=== PATIENT | male | born 1935 | race Caucasian/White ===

== ENCOUNTER 2019-05-23 10:25 | Emergency (ER) | payer OTHER ==
[2019-05-23 11:06] LABS: Influenza A Molecular Negative (Negative); Influenza B Molecular Negative (Negative)
--- NOTE | 2019-05-23 11:24 | ED ---
Influenza-Like Illness - HPI Summary HPI Summary: 83 year old M presents to [facility] via private car accompanied by his with concerns for influenza. The patient states he has rhinorrhea, a non-productive cough, and mild shortness of breath. Sx have been present since 05/21/19. He denies having a sore throat, fever, and chest pain. He states he had sick contact with his son, who tested positive for influenza. Home Medications Medication Instructions Recorded Confirmed Type Multivitamin [One Daily] 1 tab PO DAILY 02/06/16 12/20/17 History Albuterol HFA INHALER* [Ventolin 2 puff PO Q4H PRN 12/20/17 12/20/17 History HFA Inhaler*] Carvedilol TAB* [Coreg TAB*] 0.5 tab PO DAILY 12/20/17 12/20/17 History Cholecalciferol TAB* [Vitamin D 2 tab PO DAILY 12/20/17 12/20/17 History TAB*] DULoxetine DR CAP* [Cymbalta CAP*] 60 mg PO DAILY 12/20/17 12/20/17 History Docusate CAP* [Colace Cap*] 100 mg PO DAILY 12/20/17 12/20/17 History Ferrous Sulfate TAB* 2 tab PO DAILY 12/20/17 12/20/17 History Folic Acid TAB* [Folvite TAB*] 1 mg PO DAILY 12/20/17 12/20/17 History Gabapentin CAP(*) [Neurontin 100 100 mg PO BEDTIME 12/20/17 12/20/17 History mg CAP(*)] Hydrochlorothiazide TAB* 50 mg PO DAILY 12/20/17 12/20/17 History [Hydrodiuril TAB*] Morphine TAB (NF) [Morphine 30 MG 1 tab PO BID 12/20/17 12/20/17 History TAB (NF)] Oxybutynin XL TAB* [Ditropan XL 5 mg PO DAILY 12/20/17 12/20/17 History TAB*] Potassium Chlor TAB* [Potassium 2 tab PO DAILY 12/20/17 12/20/17 History Chlor TAB 20 MEQ*] oxyCODONE/Acetamin 5/325 MG* 1 tab PO Q4HR PRN 12/20/17 12/20/17 History [Percocet 5/325 TAB*] - History of Current Complaint Chief Complaint: EDFluSymptoms Time Seen by Provider: 05/23/19 10:35 Hx Obtained From: Patient Onset/Duration: Lasting Days Severity: Mild Associated Signs & Symptoms: Cough - Allergy/Home Medications Allergies/Adverse Reactions: Allergies Allergy/AdvReac Type Severity Reaction Status Date / Time terazosin Allergy Swelling Verified 05/23/19 10:34 Home Medications: Home Medications Multivitamin [One Daily] 1 tab PO DAILY 02/06/16 [History Confirmed 12/20/17] Albuterol HFA INHALER* [Ventolin HFA Inhaler*] 2 puff PO Q4H PRN 12/20/17 [ History Confirmed 12/20/17] Carvedilol TAB* [Coreg TAB*] 0.5 tab PO DAILY 12/20/17 [History Confirmed ] Cholecalciferol TAB* [Vitamin D TAB*] 2 tab PO DAILY 12/20/17 [History Confirmed 12/20/17] DULoxetine DR CAP* [Cymbalta CAP*] 60 mg PO DAILY 12/20/17 [History Confirmed ] Docusate CAP* [Colace Cap*] 100 mg PO DAILY 12/20/17 [History Confirmed 12/20/17 ] Ferrous Sulfate TAB* 2 tab PO DAILY 12/20/17 [History Confirmed 12/20/17] Folic Acid TAB* [Folvite TAB*] 1 mg PO DAILY 12/20/17 [History Confirmed ] Gabapentin CAP(*) [Neurontin 100 mg CAP(*)] 100 mg PO BEDTIME 12/20/17 [History Confirmed 12/20/17] Hydrochlorothiazide TAB* [Hydrodiuril TAB*] 50 mg PO DAILY 12/20/17 [History Confirmed 12/20/17] Morphine TAB (NF) [Morphine 30 MG TAB (NF)] 1 tab PO BID 12/20/17 [History Confirmed 12/20/17] Oxybutynin XL TAB* [Ditropan XL TAB*] 5 mg PO DAILY 12/20/17 [History Confirmed 12/20/17] Potassium Chlor TAB* [Potassium Chlor TAB 20 MEQ*] 2 tab PO DAILY 12/20/17 [ History Confirmed 12/20/17] oxyCODONE/Acetamin 5/325 MG* [Percocet 5/325 TAB*] 1 tab PO Q4HR PRN 12/20/17 [ History Confirmed 12/20/17] PMH/Surg Hx/FS Hx/Imm Hx Endocrine/Hematology History: Denies: Hx Diabetes Cardiovascular History: Reports: Hx Hypertension - ON MEDICATION FOR Denies: Hx Pacemaker/ICD Respiratory History: Denies: Hx Asthma, Hx Chronic Obstructive Pulmonary Disease (COPD) History: Denies: Hx Renal Disease Musculoskeletal History: Reports: Hx Arthritis - "ALL OVER" Sensory History: Reports: Hx Contacts or Glasses - GLASSES, Hx Hearing Aid - BILATERALLY Opthamlomology History: Reports: Hx Contacts or Glasses - GLASSES Psychiatric History: Denies: Hx Panic Disorder - Cancer History Cancer Type, Location and Year: PROSTATE - Surgical History Surgery Procedure, Year, and Place: RIGHT SHOULDER ROTATOR CUFF SURGERY 2009. PROSTATE SURGERY 2013-NECK SURGERY 2010. THUMB SURGERY 2010 Hx Anesthesia Reactions: No Infectious Disease History: No Infectious Disease History: Denies: Traveled Outside the [place] in Last 30 Days - Family History Known Family History: Positive: Other - CVA - Social History Alcohol Use: None Substance Use Type: Reports: None Smoking Status (MU): Current Every Day Smoker Type: Pipe Amount Used/How Often: PIPE- 1-2 TIMES PER DAY Review of Systems Negative: Fever Positive: Nasal Discharge. Negative: Sore Throat Negative: Chest Pain Positive: Shortness Of Breath - Mild SOB. , Cough All Other Systems Reviewed And Are Negative: Yes Physical Exam - Summary Physical Exam Summary: VITAL SIGNS: Reviewed. GENERAL: Patient is a well-developed and nourished male who is lying comfortable in the stretcher. Patient is not in any acute respiratory distress. HEAD AND FACE: No signs of trauma. No ecchymosis, hematomas or skull depressions. No sinus tenderness. EYES: PERRLA, EOMI x 2, No injected conjunctiva, no nystagmus. EARS: Hearing grossly intact. Ear canals and tympanic membranes are within normal limits. MOUTH: Oropharynx within normal limits. NECK: Supple, trachea is midline, no adenopathy, no JVD, no carotid bruit, no c- spine tenderness, neck with full ROM. CHEST: Symmetric, no tenderness at palpation. LUNGS: Clear to auscultation bilaterally. No wheezing or crackles. CVS: Regular rate and rhythm, S1 and S2 present, no murmurs or gallops appreciated. ABDOMEN: Soft, non-tender. No signs of distention. No rebound, no guarding, and no masses palpated. Bowel sounds are normal. EXTREMITIES: FROM in all major joints, no edema, no cyanosis or clubbing. NEURO: Alert and oriented x 3. No acute neurological deficits. Speech is normal and follows commands. SKIN: Dry and warm. Triage Information Reviewed: Yes Vital Signs On Initial Exam: Initial Vitals Temp Pulse Resp BP Pulse Ox 97.7 F 71 16 135/81 97 05/23/19 10:32 05/23/19 10:32 05/23/19 10:32 05/23/19 10:32 05/23/19 10:32 Vital Signs Reviewed: Yes Procedures - Sedation Patient Received Moderate/Deep Sedation with Procedure: No Diagnostics - Vital Signs Vital Signs Temp Pulse Resp BP Pulse Ox 05/23/19 10:32 97.7 F 71 16 135/81 97 - Laboratory Lab Results: Lab Results 05/23/19 Range/Units 10:40 Influenza A (Rapid) Negative (Negative) Influenza B (Rapid) Negative (Negative) Lab Statement: Any lab studies that have been ordered have been reviewed, and results considered in the medical decision making process. Re-Evaluation - Re-Evaluation First Eval Comment: Dr. Estrada informed the patient of influenza testing results. Flu Symptom Course/Dx - Course Assessment/Plan: 83 year old M presents to [facility] via private car accompanied by his with concerns for influenza. The patient states he has rhinorrhea, a non-productive cough, and mild shortness of breath. Sx have been present since . He denies having a sore throat, fever, and chest pain. He states he had sick contact with his son, who tested positive for influenza. Influenza A and B were negative. Patient is currently asymptomatic. He is only tested because he was in contact with someone who is positive for influenza. Plan of care was discussed with the patient and understands and agrees. All questions were answered at patient satisfaction. There were no further complaints or concerns. Lung exam before discharge: CTA B/L. Good air exchange. No wheezing or crackles heard. CVS: S1 and S2 present. No murmurs appreciated. Patient is alert and oriented x 3. Patient is hemodynamically stable. Patient will be discharged home with follow up PCP in the next 2-3 days - Diagnoses Provider Diagnoses: URI (upper respiratory infection) Discharge ED - Sign-Out/Discharge Documenting (check all that apply): Patient Departure - Discharge. - Discharge Plan Condition: Stable Disposition: HOME Patient Education Materials: Upper Respiratory Infection (ED) Referrals: Rosa Elena Kendall [Primary Care Provider] - 3 Days Additional Instructions: Please return to the ER with new or worsening symptoms. Please make a follow up appointment with your primary care physician within 3 days. - Billing Disposition and Condition Condition: STABLE Disposition: Home - Attestation Statements Document Initiated by Leonardo: Yes Documenting Scribe: Renata Sarkar Provider For Whom Leonardo is Documenting (Include Credential): Jude Estrada MD Scribe Attestation: Renata Villanueva, scribed for Jude Estrada MD on 05/24/19 at 0828. Scribe Documentation Reviewed: Yes Provider Attestation: The documentation as recorded by the Renata villanueva accurately reflects the service I personally performed and the decisions made by Jude sandoval MD Status of Scribe Document: Viewed
[2019-05-23 11:37] VITALS: BP 124/65
== END 2019-05-23 11:37 | disposition home or self-care (01) ==
LOC: ED 10:25
DX: J06.9 Acute upper respiratory infection, unspecified (principal); R06.02 Shortness of breath; F17.210 Nicotine dependence, cigarettes, uncomplicated; Z79.899 Other long term (current) drug therapy; Z85.46 Personal history of malignant neoplasm of prostate; Z82.3 Family history of stroke
CPT/HCPCS: 99281

== ENCOUNTER 2019-06-14 22:49 | Observation (INO) | payer OTHER ==
--- NOTE | 2019-06-14 23:44 | ED ---
HPI Chest Pain - HPI Summary HPI Summary: 83 year old male presents to the ED with a chief complaint of right-sided chest pain starting at 1900 today. Patient reports that his stepson asked him to come to the ED, and he obliged. Patient's pain started as a 4/10 in severity on his left side, but the pain soon migrated to his right side. Patient thought it was reflux and took a John, which might have may have alleviated the pain slightly. Pain is currently still a 3. Patient reports slight diaphoresis, but denies SOB , nausea, or fever. His 2 days ago. No history of heart issues. History of neck surgery, back surgery, and hip surgery. Family history of CVA. Patient does not drink alcohol or do recreational drugs, but he smokes from a pipe occasionally. - History of Current Complaint Chief Complaint: EDChestPainROMI Time Seen by Provider: 06/14/19 23:34 Hx Obtained From: Patient Onset/Duration: Started Hours Ago Time of Onset: 19:00 Timing: Constant, Lasting Seconds, Lasting Hours Current Severity: Mild Pain Intensity: 3 Pain Scale Used: 0-10 Numeric Chest Pain Location: Right Anterior - Started on left side but moved to right side Chest Pain Radiates: No Aggravating Factor(s): Nothing Alleviating Factor(s): Medication - John's Associated Signs and Symptoms: Positive: Chest Pain, Diaphoresis. Negative: Shortness of Breath, Fever, Nausea - Allergy/Home Medications Allergies/Adverse Reactions: Allergies Allergy/AdvReac Type Severity Reaction Status Date / Time terazosin Allergy Swelling Verified 05/23/19 10:34 Home Medications: Home Medications Multivitamin [One Daily] 1 tab PO DAILY 02/06/16 [History Confirmed 06/15/19] Albuterol HFA INHALER* [Ventolin HFA Inhaler*] 2 puff PO Q4H PRN 12/20/17 [ History Confirmed 06/15/19] Carvedilol TAB* [Coreg TAB*] 0.5 tab PO DAILY 12/20/17 [History Confirmed ] Cholecalciferol TAB* [Vitamin D TAB*] 2 tab PO DAILY 12/20/17 [History Confirmed 06/15/19] Hydrochlorothiazide TAB* [Hydrodiuril TAB*] 50 mg PO DAILY 12/20/17 [History Confirmed 06/15/19] Potassium Chlor TAB* [Potassium Chlor TAB 20 MEQ*] 1 tab PO BID 12/20/17 [ History Confirmed 06/15/19] oxyCODONE/Acetamin 5/325 MG* [Percocet 5/325 TAB*] 1 tab PO Q4HR PRN 12/20/17 [ History Confirmed 06/15/19] PMH/Surg Hx/FS Hx/Imm Hx Endocrine/Hematology History: Denies: Hx Diabetes Cardiovascular History: Reports: Hx Hypertension - ON MEDICATION FOR Denies: Hx Pacemaker/ICD Respiratory History: Denies: Hx Asthma, Hx Chronic Obstructive Pulmonary Disease (COPD) History: Denies: Hx Renal Disease Musculoskeletal History: Reports: Hx Arthritis - "ALL OVER" Sensory History: Reports: Hx Contacts or Glasses - GLASSES, Hx Hearing Aid - BILATERALLY Opthamlomology History: Reports: Hx Contacts or Glasses - GLASSES Psychiatric History: Denies: Hx Panic Disorder - Cancer History Cancer Type, Location and Year: PROSTATE - Surgical History Surgery Procedure, Year, and Place: RIGHT SHOULDER ROTATOR CUFF SURGERY 2009. PROSTATE SURGERY 2013-NECK SURGERY 2010. THUMB SURGERY 2011 Hx Anesthesia Reactions: No Infectious Disease History: No Infectious Disease History: Denies: Traveled Outside the [place] in Last 30 Days - Family History Known Family History: Positive: Other - CVA - Social History Alcohol Use: None Substance Use Type: Reports: None Smoking Status (MU): Current Every Day Smoker Type: Pipe Amount Used/How Often: PIPE- 1-2 TIMES PER DAY Review of Systems - ROS Summary Review of Systems Summary: Home Medications Medication Instructions Recorded Confirmed Type Multivitamin [One Daily] 1 tab PO DAILY 02/06/16 12/20/17 History Albuterol HFA INHALER* [Ventolin 2 puff PO Q4H PRN 12/20/17 12/20/17 History HFA Inhaler*] Carvedilol TAB* [Coreg TAB*] 0.5 tab PO DAILY 12/20/17 12/20/17 History Cholecalciferol TAB* [Vitamin D 2 tab PO DAILY 12/20/17 12/20/17 History TAB*] DULoxetine DR CAP* [Cymbalta CAP*] 60 mg PO DAILY 12/20/17 12/20/17 History Docusate CAP* [Colace Cap*] 100 mg PO DAILY 12/20/17 12/20/17 History Ferrous Sulfate TAB* 2 tab PO DAILY 12/20/17 12/20/17 History Folic Acid TAB* [Folvite TAB*] 1 mg PO DAILY 12/20/17 12/20/17 History Gabapentin CAP(*) [Neurontin 100 100 mg PO BEDTIME 12/20/17 12/20/17 History mg CAP(*)] Hydrochlorothiazide TAB* 50 mg PO DAILY 12/20/17 12/20/17 History [Hydrodiuril TAB*] Morphine TAB (NF) [Morphine 30 MG 1 tab PO BID 12/20/17 12/20/17 History TAB (NF)] Oxybutynin XL TAB* [Ditropan XL 5 mg PO DAILY 12/20/17 12/20/17 History TAB*] Potassium Chlor TAB* [Potassium 2 tab PO DAILY 12/20/17 12/20/17 History Chlor TAB 20 MEQ*] oxyCODONE/Acetamin 5/325 MG* 1 tab PO Q4HR PRN 12/20/17 12/20/17 History [Percocet 5/325 TAB*] Positive: Skin Diaphoresis. Negative: Fever Positive: Chest Pain Negative: Shortness Of Breath Negative: Nausea All Other Systems Reviewed And Are Negative: Yes Physical Exam - Summary Physical Exam Summary: General: Well-developed, Well-nourished, elderly male. No acute distress. HEENT: Normocephalic, Atraumatic. Eyes: Conjuctiva normal, PERRL. Ears: TMs within normal limits. Nares: (-) discharge, (-) erythema. Oropharynx: Clear, mucous membranes moist, (-) exudates. Neck: Soft, FROM, (-) lymphadenopathy, (-) thyromegaly, (-) JVD. Cardiovascular: Normal sinus rhythm, (-) murmur. Lungs: Clear to auscultation bilaterally (-) wheezes, (-) rales, (-) rhonchi. Abdomen: Soft, non-tender, non-distended, (-) organomegaly, normal bowel sounds. Back: (-) CVA tenderness Extremities: No edema. Skin: Warm, dry, (-) rash. Neuro: Alert and oriented x3, no focal deficits. Psychiatric: Mood normal, affect normal. Triage Information Reviewed: Yes Vital Signs On Initial Exam: Initial Vitals Temp Pulse Resp BP Pulse Ox 97.6 F 65 20 147/78 100 06/14/19 22:54 06/14/19 22:54 06/14/19 22:54 06/14/19 22:54 06/14/19 22:54 Vital Signs Reviewed: Yes Procedures - Sedation Patient Received Moderate/Deep Sedation with Procedure: No Diagnostics - Vital Signs Vital Signs Temp Pulse Resp BP Pulse Ox 06/14/19 22:54 97.6 F 65 20 147/78 100 - Laboratory Result Diagrams: 06/14/19 23:23 06/14/19 23:23 Lab Statement: Any lab studies that have been ordered have been reviewed, and results considered in the medical decision making process. - Radiology CXR Radiology Interpretation Completed By: ED Physician Summary of Radiographic Findings: No infiltrate. No pleural effusion. Dr. Mcclellan has reviewed and interpreted by Dr. Mcclellan. Pending official read. - EKG 2254 Cardiac Rate: NL - 65 bpm EKG Rhythm: Sinus Rhythm ST Segment: Normal Ectopy: None Summary of EKG Findings: EKG at 2254 reveals normal sinus rhythm with rate of 65 BPM, no acute changes, no ischemic changes. No STEMI. This EKG was reviewed and interpreted by Dr. Mcclellan. Chest Pain Course/Dx - Course Course Of Treatment: 83-year-old male presents to the emergency room for chest pain. He states he lives at home with his stepson. He began having chest pain tonight about 7:00. Started on the left and then moved to the right. Describes it as a 4 out of 10 at its worst. Vague historian. He thought it was indigestion so he took a Tums. Not sure if that really helped or not. He denies any history of coronary artery disease. Denies any nausea or suppressant. Sometimes sweaty. Patient does note that his 2 days ago. On physical exam there is no significant abnormalities found. Workup demonstrates a troponin of 0.03. Normal EKG. Normal x-ray. Repeat troponin was 0.03 as well. Discussed with patient at length. Patient referred to hospitalist for admission. During ED course, patient was given acetaminophen, amlodipine, enoxaparin, fluids, and ondansetron. - Diagnoses Provider Diagnoses: Chest pain - Provider Notifications Discussed Care Of Patient With: Stanton Irving - Hospitalist Time Discussed With Above Provider: 03:50 Instructed by Provider To: Admit As Observation - Dr. Irving agrees to admit patient as observation Admit/Transition Orders Completed By ED Provider: Yes Discharge ED - Sign-Out/Discharge Documenting (check all that apply): Patient Departure - admit - Discharge Plan Condition: Stable Disposition: ADMITTED TO [facility] Referrals: Rosa Elena Kendall [Primary Care Provider] - - Billing Disposition and Condition Condition: STABLE Disposition: Admitted to [facility] - Attestation Statements Document Initiated by Scribe: Yes Documenting Scribe: Dez Eaton Provider For Whom Natalioibe is Documenting (Include Credential): Dr. Kristen Mcclellan Scribe Attestation: Dez Villanueva, scribed for Dr. Kristen Mcclellan on 06/15/19 at 0615. Scribe Documentation Reviewed: Yes Provider Attestation: The documentation as recorded by the scribeDez accurately reflects the service I personally performed and the decisions made by , Dr. Kristen Mcclellan Status of Scribe Document: Viewed
[2019-06-15 00:06] LABS: ABS Monocytes 0.4 10^3/ul (0-0.8); Eosinophil % 1.3 %; Hematocrit 30 % (42-52); Hemoglobin 10.7 g/dL (14.0-18.0); Lymphocyte % 29.8 %; Mean Corpuscular HGB Conc 35 g/dL (31-36); Mean Corpuscular Hemoglobin 31 pg (27-31); Mean Corpuscular Volume 88 fL (80-94); Mean Platelet Volume 7.8 fL (7.4-10.4); Platelet Count 234 10^3/uL (150-450); Red Blood Count 3.44 10^6 /uL (4.18-5.48); Red Cell Distribution Width 15 % (10-15); White Blood Count 3.5 10^3/uL (3.5-10.8)
[2019-06-15 00:20] LABS: ALT 14 U/L (7-52); AST 25 U/L (13-39); Albumin 4.3 g/dL (3.2-5.2); Albumin/Globulin Ratio 1.3 (1-3); Alkaline Phosphatase 80 U/L (34-104); Anion Gap 8 mmol/L (2-11); BUN/Creatinine Ratio 21.4 (8-20); Blood Urea Nitrogen 41 mg/dL (6-24); CO2 Carbon Dioxide 27 mmol/L (22-32); Calcium 10.1 mg/dL (8.6-10.3); Chloride 102 mmol/L (101-111); EGFR African American 40.7 (>60); EGFR Non-African American 33.6 (>60); Globulin 3.2 g/dL (2-4); Glucose 103 mg/dL (70-100); Potassium 4.2 mmol/L (3.5-5.0); Sodium 137 mmol/L (135-145); Total Protein 7.5 g/dL (6.4-8.9)
[2019-06-15 00:38] LABS: Troponin I 0.03 ng/mL (<0.03)
[2019-06-15 03:30] LABS: Troponin I 0.03 ng/mL (<0.03)
[2019-06-15] MEDS ORDERED: Acetaminophen TAB* 325 MG PO PRN (04:21)
[2019-06-15] MEDS ORDERED: Ondansetron INJ* 2 MG/ML VIAL IV PRN (04:21)
[2019-06-15] MEDS ORDERED: amLODIPine TAB* 5 MG PO ONE (04:28)
[2019-06-15] MEDS ORDERED: NS 0.9% 1000 ML** 1,000 ML IV SCH (04:30)
[2019-06-15] MEDS ORDERED: Enoxaparin(*) 40 MG/0.4 ML SYR SUBCUT SCH (05:00)
[2019-06-15 05:26] LABS: Cholesterol 198 mg/dL; HDL Cholesterol 59.8 mg/dL; LDL Cholesterol 115 mg/dL; Triglycerides 116 mg/dL
[2019-06-15 06:05] LABS: Troponin I 0.03 ng/mL (<0.03)
--- NOTE | 2019-06-15 07:35 | HP ---
AMENDED REPORT NOW INCLUDES DESIGNATED COSIGNER - ESIGNED BEFORE ADJUSTMENTS ADMISSION HISTORY AND PHYSICAL: DATE OF ADMISSION: 06/15/19 PRIMARY CARE PHYSICIAN: Rosa Elena Kendall NP PROVIDER: Gardenia Lyn NP ATTENDING PHYSICIAN: Dr. Irving.* (DICTATED BY GARDENIA LYN NP) CHIEF COMPLAINT: Chest pain. HISTORY OF PRESENT ILLNESS: This is an 83-year-old male with a past medical history significant for hypertension and prostate cancer, who came to the emergency room on 06/14/19 after experiencing chest pain starting around 1900 yesterday 06/14/19. His 2 days ago. They have been for 32 years and then starting around 1900, he developed a 3/10 left-sided chest pain that migrated to the right. It did not radiate to his jaw, back or arm. He thought it was indigestion, so he took Tums, which helped alleviate the pain to a certain degree. He also denied any associated nausea or sweating or palpations. He stated that he has been under considerable amount of stress considering the sudden nature of his passing and the state of the world today. In the emergency room, chest x-ray and EKG were performed, labs were drawn, which revealed a troponin of 0.03 x2. Hospitalists were asked to evaluate the patient for admission. At the time of evaluation, he was denying any chest pain. PAST MEDICAL HISTORY: 1. Hypertension. 2. Arthritis. 3. Prostate cancer. 4. Psoriasis. 5. Vitamin B12 deficiency. 6. Bilateral hearing aids. PAST SURGICAL HISTORY: 1. Left total hip replacement. 2. Right rotator cuff repair 2010. 3. Neck surgery in 2010. 4. Thumb surgery in 2010. HOME MEDICATIONS: The patient was unfamiliar with the names of the medications that he takes; however, this history is taken off of his emergency room visit on 05/23/19 where the meds were confirmed. 1. Multivitamin 1 tab p.o. daily. 2. Albuterol inhaler 2 puffs inhalation q.4 hours p.r.n. 3. Carvedilol half tab p.o. daily. 4. Cholecalciferol 2 tabs p.o. daily. 5. Duloxetine 60 mg p.o. daily. 6. Docusate 100 mg p.o. daily. 7. Ferrous sulfate 2 tabs p.o. daily 8. Folic acid 1 mg p.o. daily. 9. Gabapentin 100 mg p.o. at bedtime. 10. Hydrochlorothiazide 50 mg p.o. daily. 11. Morphine 30 mg p.o. b.i.d. 12. Oxybutynin 5 mg p.o. daily. 13. Potassium chloride 40 mEq p.o. daily. 14. Percocet 5/325 one tab p.o. q.4 hours p.r.n. ALLERGIES: TERAZOSIN. FAMILY HISTORY: Significant for CVA. SOCIAL HISTORY: He smokes pipe 1 to 2 times daily. Denies any alcohol or recreational substance use. He is retired and now . REVIEW OF SYSTEMS: A 12-point system review was performed, which was positive for chest pain without nausea or vomiting, poor appetite over the past few days , occasional cough, shortness of breath going up stairs that had been present for several months, trace pedal edema. Negative for any palpations, hematuria, melena, dysphagia, arthralgias, myalgias. PHYSICAL EXAMINATION GENERAL: This is a well-developed older gentleman seen sitting up at the edge of bed, in no acute distress. VITAL SIGNS: 97.9 Fahrenheit, 59 pulse, 20 respirations, 100% oxygen on room air and 171/65 blood pressure. HEENT: Conjunctivae pink and moist. Arcus senilis seen in bilateral irises. EOMs intact. PERRLA. Oropharynx clear. Mucous membranes moist. NECK: Supple. RESPIRATORY: Lung sounds clear, but diminished throughout bilaterally on room air. No accessory muscle use noted. CARDIAC: S1, S2 present. Heart rate regular. No murmurs, gallops, or rubs appreciated. ABDOMEN: Soft, nontender, nondistended with positive bowel sounds x4. MUSCULOSKELETAL: No clubbing or cyanosis of the digits. 1+ nonpitting edema to bilateral lower extremities. NEUROLOGIC: Sensation intact to light touch. Moves all extremities. SKIN: He has a roughly 1.5 x 1.5 cm raised, keratotic lesion with bloody scabs to the top of his head. No other open areas appreciated. PSYCH: He is alert and oriented x4. Repeatedly refers to his and recounting the details around her passing. He is anxious. PERTINENT LAB DATA: WBC 3.5, RBCs 3.44, hemoglobin 10.7, hematocrit 30, MCV 88 , MCH 31, INR 1.10, D-dimer less than 200. BUN 41, creatinine 1.92. BUN and creatinine ratio 21.4. Glucose 103, lactic acid 0.6, troponin 0.03. DIAGNOSTIC STUDIES: A chest x-ray was performed, still awaiting official radiologic interpretation, however, there does not appear to be any active cardiopulmonary disease. ASSESSMENT AND PLAN: IMPRESSION: This is an 83-year-old male with a past medical history significant for hypertension and prostate cancer, who is admitted on 06/15/19 for chest pain, ST-elevation myocardial infarction ruled out. 1. Chest pain. EKG was performed, which showed no ST changes; however, there were some T-wave inversions in V3, V4 and V5. There is no other EKG to compare this against. He does not have any history of myocardial infarction. We will do troponins x3; however, first 2 troponins have remained the same at 0.03 and he is having no current reports of chest pain. His HEART score is 4, which equals risk of major adverse cardiac event of 12% to 16.6%. I have ordered a transthoracic echocardiogram as well as nuclear stress test. So, he will be kept n.p.o. and his beta-joyce held, no caffeine until that time. I have added on lipids and hemoglobin A1c to his most recent labs and I am still awaiting those results. 2. Anemia. The patient states that he typically takes vitamin B12 supplement as well as iron and folic acid. I do not feel that this requires further workup at this time. 3. Elevated creatinine. His creatinine level is 1.92 and due to no previous labs for comparison, I am unsure whether this is a chronic kidney disease or acute kidney injury. I have started normal saline at 75 mL an hour x 1 bag. He has had no reports of any urinary issues. 4. High blood pressure. The patient is unsure of the medications that he is currently on for blood pressure, though according to past ED records, he takes hydrochlorothiazide and carvedilol. Due to the attempts to rehydrate the patient and the fact that he will be going to a stress test, I will hold this medications for now and instead give a one-time dose of amlodipine 5 mg. 5. DVT prophylaxis. Initiate Lovenox. 6. Code status. He is full code. 7. Condition is guarded. 8. Disposition is to admit OBV to [address] [place] [address]. TIME SPENT: Time spent on the patient is 60 minutes with 30 of those spent face to face. GARDENIA LYN, CHANGE ROOM ATTENDANT [id number]/CPS #: [id number] HELIO
[2019-06-15] MEDS ORDERED: Regadenoson* 0.4 MG/5 ML SYRINGE ONE (07:52)
[2019-06-15] MEDS ORDERED: Hydrochlorothiazide TAB* 50 MG PO SCH (09:00)
[2019-06-15] MEDS ORDERED: Carvedilol TAB* 3.125 MG PO SCH (09:00)
[2019-06-15] MEDS ORDERED: Enoxaparin(*) 30 MG/0.3 ML SYR SUBCUT SCH (09:00)
[2019-06-15] MEDS ORDERED: Aspirin 81 mg CHEW TAB* 81 MG TAB.CHEW PO SCH (11:00)
--- NOTE | 2019-06-15 14:52 | ECHO ---
*[facility]* [place] [address] Fax #: [phone] Transthoracic Echocardiogram Patient: Wilfrid Salazar : 1935 Study Date: 06/15/2019 Age: 83 Gender: M HR: 61 bpm Height: 68 in /172.7 cm BSA: 1.86 m^2 Weight: 159.7 lb /72.6 kg BMI: 24.3 kg/m^2 *Perishable Freight Inspector: * Marline Greer *Referring Physician: * Gardenia Noble *Reading Physician: * Haja Guy MD Indications: Chest Pain, unspecified. History: Risk factors: Current tobacco use, Pipe smoker. Hypertension. Conclusions Summary: - Left ventricle: Systolic function is normal. The estimated ejection fraction is 55-60%. Wall motion is normal; there are no regional wall motion abnormalities. - Right ventricle: Systolic function is normal. - Mitral valve: There is trace regurgitation. - Aortic valve: The findings are consistent with mild stenosis. Peak velocity 2.6m/s Mean gradient 15 mmHg There is moderate regurgitation. - Tricuspid valve: There is trace regurgitation. - Pericardium, extracardiac: There is no significant pericardial effusion. - Pulmonary arteries: Systolic pressure can not be accurately estimated. - Study data: No prior study is available for comparison. Study data: Transthoracic echocardiogram. Procedure: Transthoracic echocardiography was performed. Image quality was good. Complete 2D, spectral Doppler, and color flow Doppler. Location: Bedside. Patient status: Inpatient. Patient room number: 447-1. No prior study is available for comparison. Rhythm: Normal sinus rhythm. Findings Left ventricle: The cavity size is normal. Wall thickness is normal. Systolic function is normal. The estimated ejection fraction is 55-60%. Wall motion is normal; there are no regional wall motion abnormalities. Doppler parameters are consistent with abnormal left ventricular relaxation (grade 1 diastolic dysfunction). Right ventricle: The cavity size is normal. Systolic function is normal. Ventricular septum: The ventricular septum is normal. Left atrium: The atrium is normal in size. Right atrium: The atrium is normal in size. Mitral valve: The valve is structurally normal. There is no evidence of stenosis. There is trace regurgitation. Aortic valve: The valve is trileaflet. The leaflets are mildly thickened. Cusp separation is reduced. The findings are consistent with mild stenosis. There is moderate regurgitation. Tricuspid valve: The valve is structurally normal. There is no evidence of stenosis. There is trace regurgitation. Pulmonic valve: The valve is structurally normal. There is no evidence of stenosis. There is trace regurgitation. Aorta: The aortic root appears normal. The aortic arch appears normal. Pericardium: There is no significant pericardial effusion. Pulmonary arteries: Systolic pressure can not be accurately estimated. Systemic veins: Inferior vena cava: The vessel is normal in size. There is (>= 50%) respiratory change in the IVC dimension. Pulmonary veins: The Pulmonary veins appear normal. Measurements Left ventricle Value Ref Aortic valve continued Value Ref MUKESH, LAX (L) 3.4 cm 4.2 - 5.8 VTI, S 50.3 cm ---- ESD, LAX (L) 2.3 cm 2.5 - 4.0 Mean grad, S 15.0 mm Hg ---- FS, LAX 32 % 25 - 43 Peak grad, S 27.0 mm Hg ---- PW, ED, LAX (H) 1.1 cm 0.6 - 1.0 ROSE, VTI 1.99 cm^2 ---- E', lat ivon, TDI 10.4 cm/sec >=10.0 ROSE, Vmax 2.21 cm^2 -- -- E/e', lat ivon, 8 AR peak v 3.87 m/sec ---- TDI AR PHT 340 ms ---- AR peak grad 60 mm Hg ---- LVOT Value Ref Diam, S 2.00 cm Mitral valve Value Ref Area 3.1 cm^2 Peak E 0.81 m/sec ---- Peak bebo, S 1.84 m/sec Peak A 0.89 m/sec ---- Peak grad, S 14 mm Hg Decel time 319 ms ---- Mean grad, S 5 mm Hg Peak grad, D 2.6 mm Hg ---- SV 100 ml Peak E/A ratio 0.9 ---- Ventricular septum Value Ref Pulmonic valve Value Ref IVS, ED (H) 1.1 cm 0.6 - 1.0 Peak v, S 1.14 m/sec ---- Peak grad, S 5.0 mm Hg ---- Right ventricle Value Ref MUKESH, LAX 3.7 cm Aortic root Value Ref MUKESH minor ax, (H) 3.8 cm 1.9 - 3.5 Root diam 3.9 cm <4.0 A4C mid Ascending aorta Value Ref Left atrium Value Ref AAo AP diam, S 3.3 cm ---- AP dim, ES 3.20 cm 3.00 - 4.00 Aortic arch Value Ref ML dim, A4C 4.7 cm Arch diam 2.4 cm ---- SI dim, A4C 6.1 cm Vol/bsa, ES, 1-p 33 ml/m^2 12 - 37 Decending aorta Value Ref A4C Kathya peak bebo 0.72 m/sec ---- Right atrium Value Ref Inferior vena cava Value Ref SI dim, ES 4.8 cm 3.4 - 5.3 Diam 2.2 cm ---- ML dim, ES, A4C 4.0 cm 2.6 - 4.4 SI dim, ES, A4C 4.8 cm 3.4 - 5.3 Aortic valve Value Ref Peak v, S 2.61 m/sec Legend: (L) and (H) marcello values outside specified reference range. Prepared and electronically signed by Haja Guy MD 06/15/2019 14:52
[2019-06-15] MEDS ORDERED: Atorvastatin* 40 MG TAB PO SCH (17:00)
[2019-06-15 17:09] VITALS: BP 142/56
--- NOTE | 2019-06-15 18:47 | CONS ---
CC: Rosa Elena Kendall NP * CARDIOLOGY CONSULTATION: DATE OF CONSULT: 06/15/19 INDICATION FOR CONSULTATION: Chest pain, abnormal stress test. HISTORY OF PRESENT ILLNESS: The patient is an 83-year-old gentleman with a history of prostate cancer and hypertension, who came to the emergency room because of chest pain. Of note, the patient's of 32 years 2 days ago. The patient states that he started developing chest pain yesterday around 7. It was a 3/10 chest pain within the left side and migrated to the right. It did not radiate to his jaw or his back. He did have some indigestion as well. He took some Tums with some improvement in his discomfort. Ultimately, he decided to come to the emergency room. On arrival in the emergency room, his EKG showed normal EKG, no evidence of ischemia, no evidence of ST segment elevation myocardial infarction. His initial troponin level was 0.03 and remained at that level x3. This morning, the patient underwent a chemical nuclear stress test, which did show a moderate area of ischemia to his inferior wall and a mild area of ischemia to his anteroseptal wall. It is an qhurwnnuijvt-uz-loir risk stress test. The patient did have an echocardiogram, which showed normal LV size and systolic function. He does have moderate aortic regurgitation and mild-to- moderate aortic stenosis. No other valvular abnormalities. In speaking with the patient today, he really has no complaints. He is up walking in the halls without any symptoms. He denies any orthopnea. He denies any palpitations. He denies any lightheadedness, dizziness or syncope. PAST MEDICAL HISTORY: Significant for hypertension, prostate cancer, psoriasis , B12 deficiency. PAST SURGICAL HISTORY: Total left hip replacement in the past, neck surgery, rotator cuff repair. OUTPATIENT MEDICATIONS: Include: 1. Multivitamin a day. 2. Coreg 3.125 mg once a day. 3. Calciferol 2 tablets a day. 4. Duloxetine 60 mg a day. 5. Iron tablets. 6. Folic acid. 7. Hydrochlorothiazide 50 mg a day. 8. Potassium 40 mEq a day. 9. Percocet as needed. ALLERGIES: He is intolerant of TERAZOSIN causing hypotension. FAMILY HISTORY: Significant for CVA in his mother. SOCIAL HISTORY: He is recently . He is retired. He smokes a pipe 1 to 2 times a day. Denies any alcohol. REVIEW OF SYSTEMS: Positive for chest pain. Negative for changes in bowel or bladder habits. Decrease in appetite recently due to the of his . Other 12-point review is unremarkable. PHYSICAL EXAM: Height is 5 feet 8 inches, weight is 165 pounds, temperature 97.3, heart rate is 60, blood pressure 142/56, respiratory rate is 18, oxygen saturation 96% on room air. Sclerae anicteric. Oropharynx is pink without erythema. Carotids are 2+ without bruits. JVD is normal. Thyroid is normal. Cardiac Exam: S1, S2 with 1/6 systolic ejection murmur heard best at the right upper sternal border. PMI is normal. Lungs are clear to auscultation bilaterally. There is no dullness to percussion. Abdomen is soft, nontender, and nondistended with normoactive bowel sounds. Extremities shows no edema. He has 2+ pulses throughout. The patient is awake, alert, and oriented. He moves all 4 extremities equally. 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 The patient is aware of it. DIAGNOSTIC STUDIES/LAB DATA: Chemistries within normal limits. BUN 41, creatinine 1.92. AST and ALT are normal. Total cholesterol 198, LDL cholesterol 115, HDL cholesterol 60. BNP at 228. IMPRESSION: This is an 83-year-old gentleman who was admitted to the hospital with chest pain. The patient is ruled out for a myocardial infarction. His EKG showed no ischemic changes. His stress test does show a moderate area of ischemia to his inferior wall potentially consistent with right coronary artery disease. The patient does not have any current symptoms. Overall, I think the patient would benefit from medical therapy. I am not convinced the patient needs to go directly to the cardiac cardiac cath lab technologist, he does have renal insufficiency with an elevated creatinine and he is 83 years old. For now, my recommendation is to start aspirin a day, continue his beta-joyce , start a statin therapy. I will see the patient in followup in 1 to 2 weeks. The patient is instructed to come back to the hospital if he has any further episodes of chest pain. The case was discussed with Dr. Rakel Espinoza. [id number]/[facility] #: [id number] HELIO
--- NOTE | 2019-06-15 19:37 | DS ---
CC: Rosa Elena Kendall NP; Dr. Guy, Cardiology * DISCHARGE SUMMARY: DATE OF ADMISSION: 06/15/19 DATE OF DISCHARGE: 06/15/19 PRIMARY CARE PROVIDER: Rosa Elena Kendall NP DISPOSITION AT DISCHARGE: Home. CONDITION AT DISCHARGE: Stable. DISCHARGE DIAGNOSIS: Chest pain in a patient with intermediate probability cardiac stress test documented on 06/15/19. After the patient's discussion with a personal care service provider, it was decided that the patient is going to continue with optimal medical treatment. SECONDARY DIAGNOSES: 1. Hypertension. 2. Arthritis. 3. Prostate cancer. 4. Psoriasis. 5. Vitamin B12 deficiency. 6. Bilateral hearing aids. Please note that the patient had elevated creatinine during his hospital stay at 1.9 with unknown baseline. MEDICATIONS AT DISCHARGE: Include: 1. Albuterol inhaler 2 puffs every 4 hours p.r.n. 2. Coreg half a tablet of 3.125 mg daily. 3. Vitamin D3 2000 units daily. 4. Hydrochlorothiazide 50 mg daily. 5. Multivitamin 1 tablet daily. 6. Oxycodone with acetaminophen 5/325 mg every 4 hours p.r.n. 7. Potassium chloride 20 mEq b.i.d. 8. Lipitor 40 mg daily. Lipitor is the only new medication and the remaining medications are unchanged from admission. CONSULTATION DURING THE HOSPITAL STAY: Included Dr. Guy from Cardiology. DIAGNOSTIC STUDIES/LAB DATA: During the hospital stay, the patient's troponins continued to be at 0.03. White blood cell count of 3.5, hemoglobin of 10.7, hematocrit of 30, and platelets of 234. The patient's D-dimer was below 200 at admission. Sodium of 137, potassium 4.2, chloride 102, carbon dioxide 27, BUN 41, creatinine 1.92. Liver function tests were unremarkable at admission. Brain natriuretic peptide was 228. Lipid profile showed triglycerides of 116, cholesterol total of 198, LDL of 115, HDL of 59. Transthoracic echocardiogram obtained on 06/15/19 showed EF of 55% to 60% with mild aortic stenosis and trace mitral regurgitation. There were no regional wall motion abnormalities of the left ventricle. There were no prior studies available for comparison. The patient's cardiac stress test documented on 06/15/19, which was a chemical stress test, impression: "Limited exam without CT for attenuation correction. Findings suspicious for potential large region of ischemia involving the inferior wall and small region of ischemia in the anteroseptal junction. Normal range estimated left ventricular systolic function. Elevated estimated left ventricular end-diastolic volume." HOSPITALIZATION COURSE: Wilfrid Salazar is an 83-year-old male who has a history of hypertension and who has no known heart disease that he remembers of and he presented to the hospital complaining of chest pain in the middle of the night between 06/14/19 and 06/15/19. He was admitted early in the morning on . Please see the patient's history and physical dictated at admission for details. Shortly, the patient had no further chest pains throughout his hospital stay. It has to be noted that the patient's suddenly and unexpectedly just 2 days prior. The patient underwent a chemical cardiac stress test that showed a large area of ischemia, please see above. The patient 's troponins continued to be at 0.03 and were "flat." Dr. Guy was asked to see the patient in consultation. He reviewed the cardiac stress test and noted that the patient's stress test shows intermediate risk, and due to the patient' s age and renal disease, it was recommended for the patient to continue optimal medical management. To optimize the patient's medical management, the patient was started on Lipitor. He was comfortable ambulating down the hallway without any evidence of chest pain and he is going to be discharged home with recommendation to follow up with his primary care provider in 4 to [address] Guy's office for an appointment in approximately 2 to 4 weeks. Please note that the patient's physical exam at discharge is unchanged from admission. [id number]/[facility] #: [id number] [facility]
== END 2019-06-15 17:50 | disposition home or self-care (01) ==
LOC: ED 22:49 → MEDTELE 06-15 04:21
PROVIDERS: ADMIT Family Medicine; ATTEND Internal Medicine
DX: R07.9 Chest pain, unspecified (principal); I10 Essential (primary) hypertension; F17.210 Nicotine dependence, cigarettes, uncomplicated; R61 Generalized hyperhidrosis; L40.9 Psoriasis, unspecified; E53.8 Deficiency of other specified B group vitamins; Z85.46 Personal history of malignant neoplasm of prostate; Z79.899 Other long term (current) drug therapy; Z96.642 Presence of left artificial hip joint; Z82.3 Family history of stroke; R94.31 Abnormal electrocardiogram [ECG] [EKG]; Z88.8 Allergy status to other drugs, medicaments and biological substances
CPT/HCPCS: 36415; 71045; 78452; 80053; 80061; 83036; 83605; 83880; 84484; 85025; 85379; 85610; 93005; 93017; 93306; 96372; 99284; A9270-GY; A9502; G0378; J1650; J2785